=== PATIENT | female | born 1970 | race Caucasian/White ===

== ENCOUNTER 2020-08-27 00:57 | Inpatient (IN) | payer OTHER ==
[~2020-08-27] VITALS: Ht 165.1 cm; Wt 104.3 kg
[2020-08-27 02:30] LABS: HEMOGLOBIN 7.7 gm/dl (12.3-15.3); RED BLOOD COUNT 3.28 M/UL (4.00-5.10); WHITE BLOOD COUNT 10.6 K/UL (4.5-11.0)
[2020-08-27 02:43] LABS: BUN/CREATININE RATIO 14 (0-10)
[2020-08-27] MEDS ORDERED: DAILY VALUE1 EACH PO (09:57)
[2020-08-27] MEDS ORDERED: ASPIRIN 325MG325 MG PO (09:58)
[2020-08-28 02:58] LABS: WHITE BLOOD COUNT 9.7 K/UL (4.5-11.0)
[2020-08-28 03:05] LABS: RED BLOOD COUNT 2.5 M/UL (4.00-5.10)
[2020-08-28 03:06] LABS: HEMOGLOBIN 5.8 gm/dl (12.3-15.3)
[2020-08-28 03:25] LABS: BUN/CREATININE RATIO 18 (0-10)
[2020-08-28 04:45] LABS: CORONAVIRUS HKU1 Not Detected (Not Detectd); CORONAVIRUS NL63 Not Detected (Not Detectd); CORONAVIRUS OC43 Not Detected (Not Detectd); CORONOAVIRUS 229E Not Detected (Not Detectd); HUMAN METAPNEUMOVIRUS Not Detected (Not Detectd); HUMAN RHINOVIRUS/ENTEROVIRUS Not Detected (Not Detectd); INFLUENZA A Not Detected (Not Detectd); INFLUENZA B Not Detected (Not Detectd); PARAINFLUENZA VIRUS 1 Not Detected (Not Detectd); PARAINFLUENZA VIRUS 2 Not Detected (Not Detectd); PARAINFLUENZA VIRUS 3 Not Detected (Not Detectd); PARAINFLUENZA VIRUS 4 Not Detected (Not Detectd)
[2020-08-28 04:46] LABS: BORDETELLA PARAPERTUSSIS Not Detected (Not Detectd); BORDETELLA PERTUSSIS Not Detected (Not Detectd); CHLAMYDIA PNEUMONIAE Not Detected (Not Detectd); MYCOPLASMA PNEUMONIAE Not Detected (Not Detectd); RESPIRATORY SYNCYTIAL VIRUS Not Detected (Not Detectd)
[2020-08-28 06:49] LABS: SARS-CoV-2 NOT DETECTED (Not Detectd)
[2020-08-28 19:10] LABS: RHEUMATOID ARTHRITIS FACTOR 13.7 IU/mL (0.0-13.9)
[2020-08-29 04:41] LABS: BUN/CREATININE RATIO 22 (0-10)
[2020-08-29 16:14] LABS: ORGANISM ID Not indicated. (.); SPECIMEN SOURCE Urine (.); STREPTOCOCCUS PNEUMONIAE AG Negative (Negative)
[2020-08-30 02:52] LABS: HEMOGLOBIN 8.5 gm/dl (12.3-15.3)
[2020-08-30 03:07] LABS: RED BLOOD COUNT 3.36 M/UL (4.00-5.10); WHITE BLOOD COUNT 15.1 K/UL (4.5-11.0)
[2020-08-30 03:20] LABS: BUN/CREATININE RATIO 24 (0-10)
[2020-08-30 14:11] LABS: ATYPICAL PANCA >1:640 titer (Neg:<1:20); CYTOPLASMIC (C-ANCA) <1:20 titer (Neg:<1:20); PERINUCLEAR (P-ANCA) <1:20 titer (Neg:<1:20)
--- NOTE | 2020-08-30 15:36 | NUR ---
PT'S 02 SAT WAS 81% ON 4LNC WHILE AMBULATING TO BATHROOM AND BACK TO BED.
[2020-08-31 04:51] LABS: BUN/CREATININE RATIO 26 (0-10)
[2020-08-31] MEDS ORDERED: PROTONIX40 M1 PO (10:30)
[2020-08-31] MEDS ORDERED: LEVOFLOXACIN500 MG PO (10:30)
[2020-08-31] MEDS ORDERED: FEROSUL325 MG PO (10:30)
[2020-08-31] MEDS ORDERED: PREDNISONE 50 M50 MG PO (10:30)
[2020-08-31] MEDS ORDERED: VENTOLIN HFA 66.7 GM INH (10:33)
[2020-08-31 12:13] LABS: COMPLEMENT C3, SERUM 166 mg/dL (82-167); COMPLEMENT C4, SERUM 22 mg/dL (12-38); HBSAG SCREEN Negative (Negative); HEP A AB, IGM Negative (Negative); HEP B CORE AB, IGM Negative (Negative); HEP C VIRUS AB <0.1 (0.0-0.9)
== END 2020-08-31 11:32 | disposition home or self-care (01) | DRG 871 ==
LOC: ER1 00:57 → CDU 04:40 → MED SURG 4 04:40
PROVIDERS: Internal Medicine; Internal Medicine Pulmonary Disease; Physician Assistant; ADMIT Internal Medicine
PROC: 8E0ZXY6 Isolation (ICD-10-PCS; 2020-08-27)
PROC: 30233N1 Transfusion of Nonautologous Red Blood Cells into Peripheral Vein, Percutaneous Approach (ICD-10-PCS; principal; 2020-08-28)
PROC: B24BZZ4 Ultrasonography of Heart with Aorta, Transesophageal (ICD-10-PCS; 2020-08-28)
DX: A41.9 Sepsis, unspecified organism (principal); J96.01 Acute respiratory failure with hypoxia; J18.9 Pneumonia, unspecified organism; D50.9 Iron deficiency anemia, unspecified; J94.9 Pleural condition, unspecified; Z20.822 Contact with and (suspected) exposure to COVID-19; Z87.891 Personal history of nicotine dependence
CPT/HCPCS: ECHO; 0240U; 36415; 36430; 36600; 71045; 71046; 71250; 71275; 76856; 80048; 80053; 80074; 80202; 81001; 82728; 82803; 83010; 83540; 83550; 83605; 83615; 83735; 83880; 84100; 84484; 85014; 85018; 85025; 85045; 85379; 85384; 85610; 85652; 85730; 86021; 86038; 86140; 86160; 86162; 86225; 86256; 86431; 86850; 86880; 86900; 86901; 86920; 87040; 87081; 87086; 87278; 87633; 87899; 93005; 93306; 96374; 96375; 99285; J0696; J1650; J1756; J1940; J1956; J2543; J2920; J3370; J7070; P9016; Q9967